=== PATIENT | female | born 1990 | race Caucasian/White ===

== ENCOUNTER 2022-10-06 14:23 | Emergency (ER) | payer BC ==
[2022-10-06 14:45] VITALS: RESP 18; BMI 36.6
[2022-10-06] MEDS ORDERED: ACETAMINOPHEN 500 MG TABLET (FP) PO ONE (15:18)
[2022-10-06 17:04] VITALS: BP 121/75; PULSE 93; TEMP 98.5
== END 2022-10-06 17:05 | disposition home or self-care (01) ==
LOC: JER 14:23
DX: J09.X2 Influenza due to identified novel influenza A virus with other respiratory manifestations (principal); R05.1 Acute cough; R06.02 Shortness of breath
CPT/HCPCS: 0241U-QW; 71046-TC-FY; 93005; 93010; 99285-25